=== PATIENT | male | born 1985 ===

== ENCOUNTER 2017-03-18 01:34 | Observation (INO) | payer SELFPAY ==
[2017-03-18 01:45] VITALS: RESP 17; TEMP 98; O2SAT 98
[2017-03-18] MEDS ORDERED: Sodium Chloride 0.9% 1,000 ML IV STA (01:54)
--- NOTE | 2017-03-18 01:57 | ED PDOC ---
HPI: Psych/Substance Abuse Time Seen by Provider: 03/18/17 01:46 Chief Complaint (Nursing): Alcohol Ingestion Chief Complaint (Provider): etoh History Per: EMS History/Exam Limitations: intoxication Additional History Per: EMS Additional Complaint(s): 28 y/o male brought in by EMS for alcohol intoxication. Patient found on ground , with vomit on himself. Patient responsive to painful stimuli. HPI limited due to current state of intoxication. Past Medical History Reviewed: Historical Data, Nursing Documentation, Vital Signs Vital Signs: Last Vital Signs Temp 98.0 F 03/18/17 01:40 Pulse 94 H 03/18/17 01:40 Resp 17 03/18/17 01:40 BP 107/77 03/18/17 01:40 Pulse Ox 98 03/18/17 01:40 - Family History Family History: States: No Known Family Hx - Allergies Allergies/Adverse Reactions: Allergies Allergy/AdvReac Type Severity Reaction Status Date / Time Unobtainable Allergy Verified 03/18/17 01:45 Review of Systems Review Of Systems: ROS cannot be obtained secondary to pt's inabilty to answer questions. Physical Exam - Reviewed Nursing Documentation Reviewed: Yes Vital Signs Reviewed: Yes - Physical Exam Appears: Positive for: Well, Non-toxic, No Acute Distress Head Exam: Positive for: ATRAUMATIC, NORMAL INSPECTION, NORMOCEPHALIC Skin: Positive for: Normal Color Eye Exam: Positive for: EOMI, PERRL ENT: Positive for: Normal ENT Inspection Cardiovascular/Chest: Positive for: Regular Rate, Rhythm Respiratory: Positive for: Normal Breath Sounds Gastrointestinal/Abdominal: Positive for: Normal Exam Back: Positive for: Normal Inspection Extremity: Positive for: Normal ROM, Other (right knee abrasion) Neurologic/Psych: Positive for: Alert (responds to painful stimuli) - Laboratory Results Result Diagrams: 03/18/17 02:25 03/18/17 02:25 - ECG O2 Sat by Pulse Oximetry: 98 - Progress ED Course And Treament: labs, CT head, CT cspine, IV fluids, IV zofran EXAM: CT Head Without Intravenous Contrast CLINICAL HISTORY: 28 years old, male; Injury or trauma; Fall; Additional info: ETOH TECHNIQUE: Axial computed tomography images of the head/brain without intravenous contrast. All CT scans at this facility use one or more dose reduction techniques, viz.: automated exposure control; ma/kV adjustment per patient size (including targeted exams where dose is matched to indication; i.e. head); or iterative reconstruction technique. Coronal and sagittal reformatted images were created and reviewed. COMPARISON: No relevant prior studies available. FINDINGS: Brain: Unremarkable. No hemorrhage. No significant white matter disease. No edema. Ventricles: Unremarkable. No ventriculomegaly. Bones/joints: Unremarkable. No acute fracture. Soft tissues: Unremarkable. Sinuses: Unremarkable as visualized. No acute sinusitis. Mastoid air cells: Unremarkable as visualized. No mastoid effusion. IMPRESSION: No evidence of an acute intracranial abnormality. EXAM: CT Cervical Spine Without Intravenous Contrast CLINICAL HISTORY: 28 years old, male; Injury or trauma; Fall; Initial encounter; Blunt trauma; Additional info: ETOH TECHNIQUE: Axial computed tomography images of the cervical spine without intravenous contrast. All CT scans at this facility use one or more dose reduction techniques, viz.: automated exposure control; ma/kV adjustment per patient size (including targeted exams where dose is matched to indication; i.e. head); or iterative reconstruction technique. Coronal and sagittal reformatted images were created and reviewed. COMPARISON: No relevant prior studies available. FINDINGS: There is no evidence of acute fracture. There is no evidence of malalignment or dislocation. There are no significant degenerative changes present. The facet joints are intact. The pharyngeal, hypopharyngeal, and laryngeal structures are unremarkable. There are multiple mildly prominent cervical lymph nodes bilaterally measuring up to 1.2 cm. The visualized portions of the lung apices are normal. IMPRESSION: No evidence of acute fracture or dislocation. Mildly prominent cervical lymph nodes bilaterally most likely reactive. ED OBSERVATION Discharge: Yes Date of observation admission: 03/18/17 Time of observation admission: 03:36 - Observation admission statement Patient is being placed in observation because:: acute alcohol intoxication - Goals of Observation Goals of observation are:: observe for clinical sobriety - Progress Note Progress Note: 03/18/17 03:37 Patient sleeping 03/18/17 05:13 Patient sleeping; arousable to painful stimuli 03/18/17 06:00 Patient awake, alert, oriented x3. Ambulating steady gait. Denies acute medical or psychiatric complaints. Tolerated PO Mother at bedside to take patient home. Disposition - Clinical Impression Clinical Impression: Alcohol intoxication - Patient ED Disposition Is Patient to be Admitted: No Counseled Patient/Family Regarding: Studies Performed, Diagnosis, Need For Followup - Disposition Disposition: Routine/Home Disposition Time: 06:00 Condition: STABLE
--- NOTE | 2017-03-18 02:33 | CT ---
EXAM: CT Head Without Intravenous Contrast CLINICAL HISTORY: 28 years old, male; Injury or trauma; Fall; Additional info: ETOH TECHNIQUE: Axial computed tomography images of the head/brain without intravenous contrast. All CT scans at this facility use one or more dose reduction techniques, viz.: automated exposure control; ma/kV adjustment per patient size (including targeted exams where dose is matched to indication; i.e. head); or iterative reconstruction technique. Coronal and sagittal reformatted images were created and reviewed. COMPARISON: No relevant prior studies available. FINDINGS: Brain: Unremarkable. No hemorrhage. No significant white matter disease. No edema. Ventricles: Unremarkable. No ventriculomegaly. Bones/joints: Unremarkable. No acute fracture. Soft tissues: Unremarkable. Sinuses: Unremarkable as visualized. No acute sinusitis. Mastoid air cells: Unremarkable as visualized. No mastoid effusion. IMPRESSION: No evidence of an acute intracranial abnormality.
[2017-03-18 02:43] LABS: EOS % 0.1 % (0.0-4.0); HEMATOCRIT 43.3 % (35.0-51.0); LYMPH % 12.9 % (20.0-40.0); MEAN CELL VOLUME 89.9 fl (80.0-94.0); MEAN CORPUSCULAR HEMOGLOBIN 29.2 pg (27.0-31.0); MEAN CORPUSCULAR HGB CONC 32.5 g/dL (33.0-37.0); MEAN PLATELET VOLUME 8.4 fl (7.2-11.7); MONO # 0.3 K/uL (0.0-0.8); MONO % 3.2 % (0.0-10.0); NEUT # 6.7 K/uL (1.8-7.0); NEUT % 83.8 % (50.0-75.0); NRBC % 0.1 % (0.0-0.0); RED CELL DISTRIBUTION WIDTH 13.5 % (11.5-14.5)
--- NOTE | 2017-03-18 03:01 | CT ---
EXAM: CT Cervical Spine Without Intravenous Contrast CLINICAL HISTORY: 28 years old, male; Injury or trauma; Fall; Initial encounter; Blunt trauma; Additional info: ETOH TECHNIQUE: Axial computed tomography images of the cervical spine without intravenous contrast. All CT scans at this facility use one or more dose reduction techniques, viz.: automated exposure control; ma/kV adjustment per patient size (including targeted exams where dose is matched to indication; i.e. head); or iterative reconstruction technique. Coronal and sagittal reformatted images were created and reviewed. COMPARISON: No relevant prior studies available. FINDINGS: There is no evidence of acute fracture. There is no evidence of malalignment or dislocation. There are no significant degenerative changes present. The facet joints are intact. The pharyngeal, hypopharyngeal, and laryngeal structures are unremarkable. There are multiple mildly prominent cervical lymph nodes bilaterally measuring up to 1.2 cm. The visualized portions of the lung apices are normal. IMPRESSION: No evidence of acute fracture or dislocation. Mildly prominent cervical lymph nodes bilaterally most likely reactive.
[2017-03-18 03:04] LABS: ALB/GLOB RATIO 1.6 (1.0-2.1); ALCOHOL SERUM 284 mg/dl (0-10); ALKALINE PHOSPHATASE 67 U/L (38-126); ALT/SGPT 60 U/L (21-72); AST/SGOT 31 U/L (17-59); BILIRUBIN,TOTAL 0.3 mg/dl (0.2-1.3); BLOOD UREA NITROGEN 12 mg/dl (9-20); CALCIUM 8.8 mg/dL (8.4-10.2); CARBON DIOXIDE 21 mmol/L (22-30); CHLORIDE 108 mmol/L (98-107); GFR AFRICAN-AMERICAN > 60; GLUCOSE,RANDOM 124 mg/dL (75-110); POTASSIUM 3.6 MMOL/L (3.6-5.0); SODIUM 148 mmol/l (132-148); TOTAL PROTEIN 7.5 G/DL (6.3-8.2)
[2017-03-18 06:22] VITALS: BP 119/73; PULSE 109
== END 2017-03-18 06:10 | disposition home or self-care (01) ==
LOC: H.ER 01:34 → H.EROBSV 03:35 → EDBD 03:35 → H.EROBSV 06:13
PROVIDERS: ADMIT Emergency Medicine; ATTEND Emergency Medicine
DX: F10.129 Alcohol abuse with intoxication, unspecified (principal); Y90.8 Blood alcohol level of 240 mg/100 ml or more
CPT/HCPCS: 70450; 72125; 80053; 82948; 85025; 99283; G0378; G0480; J2405; J7040